=== PATIENT | female | born 1980 | race Caucasian/White ===

== ENCOUNTER 2016-02-10 19:27 | Emergency (ER) | payer BC ==
[~2016-02-10] VITALS: Ht 165.1 cm; Wt 56.7 kg
[2016-02-10 19:27] VITALS: BP 129/71
== END 2016-02-10 21:35 | disposition left against medical advice (07) ==
LOC: ER 19:29
DX: Z53.21 Procedure and treatment not carried out due to patient leaving prior to being seen by health care provider (principal)
CPT/HCPCS: A4606; Z7610